=== PATIENT | male | born 1955 | race Caucasian/White ===

== ENCOUNTER 2024-07-31 15:28 | Inpatient (IN) | payer OTHER ==
--- NOTE | 2024-07-31 16:19 | RAD REPORT ---
Procedure: Chest Single View History: Chest pain Comparison: 2007 The lungs appear clear of acute infiltrate. No significant pleural effusion noted. The heart is probably upper limits normal size. IMPRESSION: No acute abnormality is displayed.
[2024-07-31] MEDS ORDERED: MORPHINE 4 MG/ML SYR ONE (16:23)
[2024-07-31 16:30] LABS: Absolute Basophils 0.1 K/uL (0-0.5); Absolute Eosinophils 0.1 K/uL (0-0.5); Absolute Lymphocytes (CBC) 1.8 K/uL (0.7-4.9); Absolute Monocytes 1.8 K/uL (0.1-1.3); Absolute Neutrophil 12.1 K/uL (1.8-8.0); Basophils % 0.9 % (0-1.3); Eosinophils % 0.8 % (0-4.4); Hematocrit 53.1 % (39.6-49.0); Hemoglobin 17.7 g/dL (13.6-17.9); Lymphocytes % 11.4 % (15.3-44.8); MCH 33.5 pg (27.0-35.0); MCHC 33.4 g/dL (32.0-36.0); MCV 100.3 fL (80-100); MPV 8.8 fL (7.6-11.3); Monocytes % 11.4 % (3.3-12.3); Neutrophils % 75.5 % (41.7-73.7); Nucleated Red Blood Cells % 0.1 % (0-0); Platelets 384 thou/uL (152-406); RBC Red Blood Cell Count 5.29 M/uL (4.33-5.43); Red Cell Distribution Width 14.4 % (12.1-15.2)
[2024-07-31 16:52] LABS: Albumin 3.7 g/dL (3.4-5.0); Anion Gap 7.9 mEq/L (5.0-15.0); Bilirubin Direct 0.2 mg/dL (0-0.2); Bilirubin Indirect, Calculated 0.4 mg/dL (0.2-0.8); Bilirubin Total 0.6 mg/dL (0.2-1.0); Globulin 3.8 g/dL (2.3-3.5); Potassium 3.9 mEq/L (3.5-5.1); Protein, Total 7.5 g/dL (6.4-8.2); Troponin High Sensitivity 5.2 pg/mL (<58.9)
[2024-07-31] MEDS ORDERED: METOPROLOL TARTRATE 5 MG/5 ML INJ IV ONE (17:00)
--- NOTE | 2024-07-31 17:02 | EDPHYS ---
Physician Documentation [facility] Name: Navid Dawkins Age: 69 yrs Sex: Male : 1955 Arrival Date: 07/31/2024 Time: 15:28 Bed 5 Private MD: ED Physician James Constantino HPI: 07/31 15:57 This 69 yrs old Male presents to ER via Ambulatory with complaints of Chest Pain, ms3 Shortness Of Breath. 15:57 69-year-old male with past medical history of hypertension, hyperlipidemia [place] [facility] [place] for chest pain that began last night. Patient also endorses headache, shortness of breath, diaphoresis. Patient states his discomfort is an 8/10. Patient denies nausea or vomiting. Historical: - Allergies: 15:54 No Known Allergies; iw - Home Meds: 16:34 losartan oral [Active]; amlodipine oral [Active]; uknown medication for aa5 hypercholesterolemia [Active]; - PMHx: 15:54 Hypertensive disorder; Hypercholesterolemia; iw ROS: 15:57 Constitutional: Negative for fever, and chills. Abdomen/GI: Negative for abdominal ms3 pain, nausea, vomiting, diarrhea, and constipation, MS/Extremity: Negative for injury and deformity, 15:57 Cardiovascular: Positive for chest pain, 15:57 Respiratory: Positive for cough, Exam: 15:57 Constitutional: This is a well developed, well nourished patient who is awake, alert, ms3 and in no acute distress. Neck: Trachea midline, no cervical lymphadenopathy. Supple, full range of motion without nuchal rigidity, or vertebral point tenderness. No Meningismus. Respiratory: Lungs have equal breath sounds bilaterally, clear to auscultation and percussion. No rales, rhonchi or wheezes noted. No increased work of breathing, no retractions or nasal flaring. Abdomen/GI: Soft, non-tender, with normal bowel sounds. No distension or tympany. No guarding or rebound. No evidence of tenderness throughout. Skin: Warm, dry with normal turgor. Normal color with no rashes, no lesions, and no evidence of cellulitis. MS/ Extremity: Pulses equal, no cyanosis. Neurovascular intact. Full, normal range of motion. 16:59 ECG was reviewed by the Attending Physician. ms3 Vital Signs: 15:54 BP 135 / 100; Pulse 94; Resp 19; Pulse Ox 95% on R/A; Pain 8/10; iw 17:00 BP 135 / 88; Pulse 115; Resp 18 S; Pulse Ox 92% on R/A; aa5 17:02 Pulse Ox 96% on 2 lpm NC; aa5 17:05 BP 134 / 89; Pulse 105; Resp 18 S; Pulse Ox 96% on 2 lpm NC; aa5 17:10 BP 123 / 87; Pulse 95; Resp 16 S; Pulse Ox 97% on 2 lpm NC; aa5 17:30 BP 130 / 95; Pulse 88; Resp 16 S; Temp 97.6(TE); Pulse Ox 96% on 2 lpm NC; aa5 17:44 Weight 88 kg; aa5 15:54 Pain Scale: Adult iw MDM: 15:54 Patient medically screened. ms3 15:57 Differential diagnosis: abnormal EKG, acute myocardial infarction, Atrial fibrillation. ms3 17:37 Data reviewed: vital signs, nurses notes, lab test result(s), EKG, radiologic studies, ms3 plain films, and as a result, I will admit patient. Consideration of Admission/Observation Patient was admitted/placed on observation. Management of patient was discussed with the following: Hospitalist: Dr Barboza. I considered the following discharge prescriptions or medication management in the emergency department Medications were administered in the Emergency Department. See MAR. Counseling: I had a detailed discussion with the patient and/or guardian regarding the historical points, exam findings, and any diagnostic results supporting the discharge/admit diagnosis, lab results, radiology results, the need for further work-up and treatment in the hospital. ED course: Discussed necessity for admission with patient. He understands and agrees with plan. All questions were answered. 07/31 15:39 Order name: Basic Metabolic Panel; Complete Time: 16:56 ms3 07/31 15:39 Order name: CBC with Diff; Complete Time: 16:43 ms3 07/31 15:39 Order name: LFT's; Complete Time: 16:56 ms3 07/31 15:39 Order name: Magnesium; Complete Time: 16:56 ms3 07/31 15:39 Order name: Troponin HS; Complete Time: 16:56 ms3 07/31 16:13 Order name: BNP; Complete Time: 16:56 ms3 07/31 15:39 Order name: XRAY Chest (1 view); Complete Time: 16:43 ms3 07/31 15:39 Order name: EKG; Complete Time: 15:39 ms3 07/31 17:12 Order name: CONS Physician Consult EDMS 07/31 15:39 Order name: Cardiac monitoring; Complete Time: 16:00 ms3 07/31 15:39 Order name: EKG - Nurse/Tech; Complete Time: 16:00 ms3 07/31 15:39 Order name: IV Saline Lock; Complete Time: 16:00 ms3 07/31 15:39 Order name: Labs collected and sent; Complete Time: 16:00 ms3 07/31 15:39 Order name: O2 Per Protocol; Complete Time: 16:00 ms3 07/31 15:39 Order name: O2 Sat Monitoring; Complete Time: 16:00 ms3 EC:59 Rate is 108 beats/min. Rhythm is irregularly irregular. QRS [place] is Normal. QRS ms3 interval is normal. Clinical impression: Atrial Fibrillation. Interpreted by me. Reviewed by me. Administered Medications: 16:28 Drug: morphine IVP or IV 4 mg IVP once over 4 mins Route: IVP; Infused Over: 4 mins; aa5 Site: right antecubital; 16:45 Follow up: Response: No adverse reaction; Marked relief of symptoms aa5 17:00 Drug: Metoprolol IVP 5 mg IVP every 5 minutes; Hold for SBP < 100 or HR < 60. x3 Route: aa5 IVP; Site: right antecubital; 17:05 Drug: Metoprolol IVP 5 mg IVP every 5 minutes; Hold for SBP < 100 or HR < 60. x3 Route: aa5 IVP; Site: right antecubital; 17:10 Drug: Metoprolol IVP 5 mg IVP every 5 minutes; Hold for SBP < 100 or HR < 60. x3 Route: aa5 IVP; Site: right antecubital; 17:15 Follow up: Response: No adverse reaction; Marked relief of symptoms aa5 17:40 CANCELLED (Physician Discretion): mg PO once ms3 17:48 Drug: Enoxaparin Sub-Q 1 mg/kg Sub-Q once Route: Sub-Q; Site: right lower abdomen; aa5 18:45 Follow up: Response: No adverse reaction aa5 Disposition: 17:11 Critical Care:. ms3 Disposition Summary: 07/31/24 17:02 Hospitalization Ordered Notes: Hospitalization Status: Inpatient Admission ms3 Provider: Sonny Barboza ms3 Location: Telemetry/MedSurg (Inpatient) ms3 Condition: Stable ms3 Problem: new ms3 Symptoms: have improved ms3 Bed/Room Type: Standard ms3 Room Assignment: 210(07/31/24 17:20) bd Diagnosis - Unspecified atrial fibrillation ms3 - Chest pain, unspecified ms3 Forms: - Medication Reconciliation Form ms3 - SBAR form ms3 - Leadership Thank You Letter ms3 Critical care time excluding procedures: 17:11 Critical care time: Bedside Care: 30 minutes, Consultation: 5 minutes, Family ms3 Intervention: 5 minutes. Total time: 40 minutes Signatures: Dispatcher [employer] EDKiera Acosta Irene RN ROBE iw Janeen Lawson RN RN aa5 James Constantino DO DO ms3 Corrections: (The following items were deleted from the chart) 15:39 15:39 Chest Single View+RAD.RAD.BRZ ordered. EDMS EDMS 17:20 17:02 ms3 bd 17:40 17:39 Aspirin PO 81 mg PO once ordered. ms3 ms3
--- NOTE | 2024-07-31 17:02 | ER ---
Nurse's Notes [facility] Name: Navid Dawkins Age: 69 yrs Sex: Male : 1955 Arrival Date: 07/31/2024 Time: 15:28 Bed 5 Private MD: Diagnosis: Unspecified atrial fibrillation;Chest pain, unspecified Presentation: 07/31 15:53 Chief complaint: Patient states: chest pain, neck pain, chills, SOB since last night. iw Coronavirus screen: Client presents with at least one sign or symptom that may indicate coronavirus-19. Initial Sepsis Screen: Does the patient meet any 2 criteria? No. Patient's initial sepsis screen is negative. Does the patient have a suspected source of infection? No. Patient's initial sepsis screen is negative. Risk Assessment: Do you want to hurt yourself or someone else? Patient reports no desire to harm self or others. 15:53 Method Of Arrival: Ambulatory iw 15:53 Acuity: ANTHONY 3 iw Historical: - Allergies: 15:54 No Known Allergies; iw - Home Meds: 16:34 losartan oral [Active]; amlodipine oral [Active]; uknown medication for aa5 hypercholesterolemia [Active]; - PMHx: 15:54 Hypertensive disorder; Hypercholesterolemia; iw Screenin:00 [facility] ED Fall Risk Assessment (Adult) History of falling in the last 3 months, aa5 including since admission No falls in past 3 months (0 pts) Confusion or Disorientation No (0 pts) Intoxicated or Sedated No (0 pts) Impaired Gait No (0 pts) Mobility Assist Device Used No (0 pt) Altered Elimination No (0 pt) Score/Fall Risk Level 0 - 2 = Low Risk Oriented to surroundings, Maintained a safe environment, Educated pt \T\ family on fall prevention, incl call for assistance when getting out of bed. Abuse screen: Denies threats or abuse. Nutritional screening: No deficits noted. Tuberculosis screening: No symptoms or risk factors identified. Assessment: 16:00 General: Appears uncomfortable, Behavior is calm, cooperative. Pain: Complains of pain aa5 in chest Pain radiates to neck Pain currently is 8 out of 10 on a pain scale. Quality of pain is described as sharp, Pain began 1 day ago. Is intermittent. Neuro: Level of Consciousness is awake, alert, obeys commands, Oriented to person, place, time, situation. Cardiovascular: Heart tones S1 S2 present Rhythm is irregular. Respiratory: Reports shortness of breath at rest Airway is patent Respiratory effort is even, unlabored, Respiratory pattern is regular, symmetrical, Breath sounds are clear bilaterally. GI: No signs and/or symptoms were reported involving the gastrointestinal system. Patient currently denies nausea, vomiting. : No signs and/or symptoms were reported regarding the genitourinary system. EENT: No signs and/or symptoms were reported regarding the EENT system. Derm: Skin is pink, warm \T\ dry. Musculoskeletal: Range of motion: intact in all extremities. 16:28 Reassessment: Patient is alert, oriented x 3, equal unlabored respirations, skin aa5 warm/dry/pink. 16:45 Reassessment: Patient is alert, oriented x 3, equal unlabored respirations, skin aa5 warm/dry/pink. Patient states feeling better. 17:10 Reassessment: Patient is alert, oriented x 3, equal unlabored respirations, skin aa5 warm/dry/pink. Patient states feeling better. Patient states symptoms have improved. 17:51 Reassessment: Patient is alert, oriented x 3, equal unlabored respirations, skin aa5 warm/dry/pink. Report faxed to admitting nurse. Pt notified of wait time to be transported to Room 210. . 18:44 Reassessment: Patient is alert, oriented x 3, equal unlabored respirations, skin aa5 warm/dry/pink. Vital Signs: 15:54 BP 135 / 100; Pulse 94; Resp 19; Pulse Ox 95% on R/A; Pain 8/10; iw 17:00 BP 135 / 88; Pulse 115; Resp 18 S; Pulse Ox 92% on R/A; aa5 17:02 Pulse Ox 96% on 2 lpm NC; aa5 17:05 BP 134 / 89; Pulse 105; Resp 18 S; Pulse Ox 96% on 2 lpm NC; aa5 17:10 BP 123 / 87; Pulse 95; Resp 16 S; Pulse Ox 97% on 2 lpm NC; aa5 17:30 BP 130 / 95; Pulse 88; Resp 16 S; Temp 97.6(TE); Pulse Ox 96% on 2 lpm NC; aa5 17:44 Weight 88 kg; aa5 15:54 Pain Scale: Adult iw ED Course: 15:30 Patient arrived in ED. mg5 15:38 James Constantino DO is Attending Physician. ms3 15:48 Janeen Lawson, RN is Primary Nurse. aa5 15:54 Triage completed. iw 16:00 Initial lab(s) drawn, by me, sent to lab. EKG done, by ED staff, reviewed by James Constantino DO. Inserted saline lock: 20 gauge in right antecubital area, using aseptic technique. Blood collected. Flushed with 10 mL NS. Patient maintains SpO2 saturation greater than 95% on room air. 16:00 Patient has correct armband on for positive identification. Placed in gown. Bed in low aa5 position. Call light in reach. Side rails up X2. Client placed on continuous cardiac and pulse oximetry monitoring. NIBP monitoring applied. nurse monitoring on. Pulse ox on. NIBP on. 16:05 XRAY Chest (1 view) In Process Unspecified. EDMS 17:01 Sonny Barboza MD is Hospitalizing Provider. ms3 17:39 1739 CM met with at the bedside in the ED exam room. Patient identified by ane name and . Demographic sheet confirmed. Patient states he lives alone in a single story home and that prior to admission, he performs ADLs independently. No HH, home oxygen or other medical services at this time. MPOA is in place. plans on returning home and states he has his vehicle at the hospital and can transport himself home. He states that if he needs to, he can call on family to transport him back home. CM team will continue to follow and coordinate care during this hospital stay. 18:45 No provider procedures requiring assistance completed. Patient admitted, IV remains in aa5 place. Administered Medications: 16:28 Drug: morphine IVP or IV 4 mg IVP once over 4 mins Route: IVP; Infused Over: 4 mins; aa5 Site: right antecubital; 16:45 Follow up: Response: No adverse reaction; Marked relief of symptoms aa5 17:00 Drug: Metoprolol IVP 5 mg IVP every 5 minutes; Hold for SBP < 100 or HR < 60. x3 Route: aa5 IVP; Site: right antecubital; 17:05 Drug: Metoprolol IVP 5 mg IVP every 5 minutes; Hold for SBP < 100 or HR < 60. x3 Route: aa5 IVP; Site: right antecubital; 17:10 Drug: Metoprolol IVP 5 mg IVP every 5 minutes; Hold for SBP < 100 or HR < 60. x3 Route: aa5 IVP; Site: right antecubital; 17:15 Follow up: Response: No adverse reaction; Marked relief of symptoms aa5 17:40 CANCELLED (Physician Discretion): [id number] mg PO once ms3 17:48 Drug: Enoxaparin Sub-Q 1 mg/kg Sub-Q once Route: Sub-Q; Site: right lower abdomen; aa5 18:45 Follow up: Response: No adverse reaction aa5 Medication: 18:45 VIS not applicable for this client. aa5 Outcome: 17:02 Decision to Hospitalize by Provider. ms3 18:44 Admitted to Tele accompanied by tech, via wheelchair, with oxygen, with chart, aa5 18:44 Condition: stable 18:44 Instructed on the need for admit, Demonstrated understanding of instructions, 18:45 Patient left the ED. db Signatures: Dispatcher [employer] EDMS Andie Rivero RN RN iw Janeen Lawson RN RN aa5 John Begum RN James Cox DO DO ms3 Elida Sibley, RN RN db Damaris Moreno mg5 Shey Olivas RN RN ane Corrections: (The following items were deleted from the chart) 16:57 16:00 Pain: Complains of pain in chest Pain radiates to neck Pain currently is 8 out of aa5 10 on a pain scale. Quality of pain is described as sharp, Pain began Is intermittent, aa5 18:55 18:55 Patient left the ED. db db
[2024-07-31] MEDS ORDERED: ONDANSETRON 4 MG/2 ML VIAL IV PRN (17:07)
[2024-07-31] MEDS ORDERED: ENOXAPARIN 100 MG/ML SYR SQ ONE (17:45)
[2024-07-31 22:03] VITALS: BMI 27.8
[2024-07-31] MEDS: ACETAMINOPHEN 500 MG TAB PO PRN (22:29)
[2024-08-01 04:44] LABS: Absolute Basophils 0.1 K/uL (0-0.5); Absolute Eosinophils 0.1 K/uL (0-0.5); Absolute Lymphocytes (CBC) 2.3 K/uL (0.7-4.9); Absolute Monocytes 1.3 K/uL (0.1-1.3); Basophils % 0.9 % (0-1.3); Eosinophils % 0.9 % (0-4.4); Hematocrit 49.8 % (39.6-49.0); Hemoglobin 16.8 g/dL (13.6-17.9); Lymphocytes % 21.3 % (15.3-44.8); MCHC 33.7 g/dL (32.0-36.0); MCV 100.8 fL (80-100); MPV 8.5 fL (7.6-11.3); Monocytes % 11.7 % (3.3-12.3); Neutrophils % 65.2 % (41.7-73.7); Nucleated Red Blood Cells % 0.1 % (0-0); Platelets 305 thou/uL (152-406); RBC Red Blood Cell Count 4.94 M/uL (4.33-5.43); Red Cell Distribution Width 14.2 % (12.1-15.2)
[2024-08-01 05:09] LABS: Anion Gap 3.2 mEq/L (5.0-15.0); Potassium 4.2 mEq/L (3.5-5.1); Thyroid Stimulating Hormone 0.868 uIU/mL (0.358-3.740); Troponin High Sensitivity 6.5 pg/mL (<58.9)
--- NOTE | 2024-08-01 07:03 | HP ---
Date of Admission: 07/31/2024 Chief Complaint: Chest pain and neck pain. History Of Present Illness: This is a 69-year-old male patient who came into office today with complaints of neck pain and chest pain. The patient says that he woke up this morning with pain in back of his neck and on each side of his neck between neck and shoulder region. There was no fall or injury. He also started to have some chest tightness, and with all these complaints, he came into office. Denies any fever, chills, cough, congestion. No expectoration or hemoptysis. No nausea, no vomiting. After he was evaluated at office, he was sent to emergency room and details were discussed with emergency room physician as soon as I evaluated him at office requesting further evaluation in the emergency room and the patient was asked to go to the emergency room right away. Denies any vomiting or diarrhea. Allergies: NO KNOWN ALLERGIES. Medications: Amlodipine 10 mg daily, aspirin 81 mg daily, atorvastatin 20 mg daily at bedtime, and losartan 100 mg daily. Review of Systems: Cardiovascular: As mentioned above. Musculoskeletal: As mentioned above. All other systems reviewed are negative. Past Medical History: Significant for impaired fasting glucose, hypertension, mixed hyperlipidemia, gastroesophageal reflux disease, abnormal liver function tests due to alcohol consumption, diverticulosis, benign prostatic hypertrophy and gout. Past Surgical History: Hernia repair with lysis of intra-abdominal operations and ileocecectomy, back surgery, shoulder surgery. Family History: Father had liver cancer. Mother had osteoporosis. Social History: Significant for smoking on a daily basis and daily use of alcohol, approximately 6 drinks a day, which is hard liquor on a daily basis. Physical Examination: Vital Signs: At office, blood pressure was 106/67; pulse was 118, irregularly irregular; temperature 97.8; respiratory rate 18. Weight 194 pounds, height 70 inches. General: Awake, alert, oriented, not in distress. HEENT: Head atraumatic, normocephalic. Conjunctivae nonerythematous. Sclerae white. Mouth, no thrush or edema noted. Ears/Nose, no mass, lesion, discharge noted. Neck: Supple. No JVD, lymph nodes, bruit, thyromegaly noted. Lungs: Bilateral good equal air entry. Clear to auscultation. No rhonchi. No rales. Heart: Sounds normal, but heart rhythm is irregularly irregular. Abdomen: Soft, bowel sounds normal. No guarding, rigidity, tenderness, mass, hepatosplenomegaly, distention, or bruit noted. Extremities: No leg edema. No calf tenderness. Skin: No rash, ulcer, cellulitis. Lymphatics: No lymph node enlargement in neck, supraclavicular, infraclavicular region. Neuro: No focal neurological deficit. Chest: Unremarkable. External Genitalia: Deferred. Rectal: Deferred. Laboratory Data: EKG shows atrial fibrillation. Chest x-ray: No acute cardiopulmonary changes. White count 16, hemoglobin 17.7, platelets 384. Sodium 135, potassium 3.9, chloride 108, bicarb 23, BUN 21, creatinine 1.21, glucose 139. Liver function tests normal. ProBNP 1168. Troponin 5.2. Impression: 1. Atrial fibrillation with rapid ventricular rate, new onset. 2. Chest pain. 3. Neck pain. 4. Hypertension. 5. Mixed hyperlipidemia. 6. Impaired fasting glucose. 7. Benign prostatic hypertrophy. 8. Diverticulosis. 9. Abnormal liver function tests due to alcohol consumption. Plan: We will go ahead and admit the patient to hospital for further evaluation and management of this problem. The patient is appropriate for inpatient and is expected to spend 2 midnights in hospital. After patient was evaluated in the emergency room, ER physician called and discussed details with me. Metoprolol and Lovenox were given and patient was admitted to the hospital. We will consult outboard technician for this new-onset atrial fibrillation. Starting tomorrow, we will continue metoprolol 25 mg 2 times a day, and if necessary, adjust dose according to the heart rate as well as blood pressure. We will also start the patient on Eliquis 5 mg 2 times a day. Echo with Doppler will be done tomorrow. We will get blood test tomorrow morning including lipid profile and TSH and magnesium level. For hypertension, we will continue to monitor his blood pressure, make adjustment on medication as it becomes necessary. For hyperlipidemia, we will continue his statin therapy per order. The patient has a longstanding history of alcohol use almost on a daily basis and drinks up to 6 drinks a day of hard liquor almost on a daily basis and this is definitely a significant risk factor for atrial fibrillation. In the past, I have advised him to lower consumption of alcohol and to quit completely because of his abnormal liver function tests that we have noted on outpatient basis, but so far, the patient has not, and once again, we will advise the patient to quit using alcohol completely. Total time 90 minutes that includes evaluation at office, communication with the emergency room physician on 2 different occasions, and performing evaluation and management for this hospital admission. JOHNNIE/NADEEM Voice ID: [id number] TATI
[2024-08-01] MEDS: SOTALOL HCL 80 MG TAB PO SCH ×2 (07:39→20:46)
[2024-08-01 07:53] VITALS: O2SAT 97
[2024-08-01] MEDS ORDERED: METOPROLOL XL 25 MG TAB PO SCH (09:00)
[2024-08-01] MEDS ORDERED: METOPROLOL XL 50 MG TAB PO SCH (09:00)
[2024-08-01] MEDS: APIXABAN 5 MG TABLET PO SCH (09:18)
--- NOTE | 2024-08-01 10:59 | ECHO ---
HEIGHT: 5 ft 10 in WEIGHT: 194 lb 0 oz DATE OF STUDY: 08/01/[address]: Juan Barboza MD 2-DIMENSIONAL: YES M.MODE: YES DOPPLER: YES COLOR FLOW: YES TDS: PORTABLE: YES DEFINITY: BUBBLE STUDY: DIAGNOSIS: ATRIAL FIBRILLATION CARDIAC HISTORY: CATHERIZATION: NO SURGERY: NO PROSTHETIC VALVE: NO PACEMAKER: NO MEASUREMENTS (cm) DIASTOLIC (NORMALS) SYSTOLIC (NORMALS) IVSd 1.0 (0.6-1.2) LA Diam 3.8 (1.9-4.0) LVEF 55-60% LVIDd 4.1 (3.5-5.7) LVIDs 3.1 (2.0-3.5) %FS 23% LVPWd 1.1 (0.6-1.2) Ao Diam 3.1 (2.0-3.7) 2 DIMENSIONAL ASSESSMENT: RIGHT ATRIUM: NORMAL LEFT ATRIUM: MILD DILATED RIGHT VENTRICLE: NORMAL LEFT VENTRICLE: NORMAL TRICUSPID VALVE: TRACE TIRCUSPID REGURGITATION MITRAL VALVE: NORMAL PULMONIC VALVE: NORMAL AORTIC VALVE: NORMAL PERICARDIAL EFFUSION: NONE AORTIC ROOT: NORMAL LEFT VENTRICULAR WALL MOTION: NORMAL DOPPLER/COLOR FLOW: NORMAL COMMENTS: 1. NORMAL LEFT VENTRICULAR SYSTOLIC FUNCTION, EJECTION FRACTION 55-60%, NORMAL WALL MOTION 2. NORMAL DIASTOLIC FUCNTION 3. MILD DILATED LEFT ATRIUM TECHNOLOGIST: GINNA DUTTON
--- NOTE | 2024-08-01 11:55 | P.CNS ---
Date of Consult: 08/01/24 Chief Complaint: AF History of Present Illness: Patient with PMH of HTN, HLD, ETOH use, sleep apnea, presented with not feeling well for 2 days, report neck pain and headache, found to be in AF w RVR with elevated BP, denies chest pressure, no SOB, no SILVERIO, report feeling some palpita tions but no syncope. Allergies No Known Allergies Allergy (Unverified 02/18/12 02:11) Home medications list reviewed: Yes Home Medications: Amlodipine [Norvasc] 10 mg PO DAILY 07/31/24 Atorvastatin Calcium 20 mg PO 07/31/24 - Past Medical/Surgical History Diabetic: No -: HTN -: High cholesterol -: Back surgery (15 yrs ago) - Social History Alcohol use: Yes Place of Residence: Home Review of Systems 10-point ROS is otherwise unremarkable Physical Examination Temp Pulse Resp BP Pulse Ox 97.0 F 85 16 102/75 97 08/01/24 08:00 08/01/24 08:00 08/01/24 08:00 08/01/24 08:00 08/01/24 08:00 General: Alert, In no apparent distress HEENT: Atraumatic, PERRLA, Mucous membr. moist/pink, EOMI, Sclerae nonicteric Neck: Supple, 2+ carotid pulse no bruit, No LAD, Without JVD or thyroid abno rmality Respiratory: Clear to auscultation bilaterally, Normal air movement Cardiovascular: Irregular heart rate/rhythm Gastrointestinal: Normal bowel sounds, No tenderness Musculoskeletal: No tenderness Integumentary: No rashes Neurological: Normal gait, Normal speech, Normal tone, Normal affect Lymphatics: No axilla or inguinal lymphadenopathy Laboratory Data (last 24 hrs) 07/31/24 07/31/24 16:12 16:12 WBC 16.00 H Hgb 17.7 Hct 53.1 H Plt Count 384 Sodium 135 L Potassium 3.9 BUN 21 H Creatinine 1.21 Glucose 139 H Magnesium 2.0 Total Bilirubin 0.6 AST 16 ALT 26 Alkaline Phosphatase 72 - Problems (1) Atrial fibrillation Current Visit: Yes Status: Acute Plan: new onset, patient is currently rate controlled Continue Sotalol 80 mg po BID (EKG after 3rd dose) Continue Eliquis 5 mg po BID NPO after midnight for possible KOREY DCCV if still in AF (2) HTN (hypertension) Current Visit: Yes Status: Acute Plan: continue Amlodipine. (3) HLD (hyperlipidemia) Current Visit: Yes Status: Acute Plan: continue statins
--- NOTE | 2024-08-01 19:45 | PN ---
Date of Progress Note: 08/01/2024 Subjective: The patient was seen this morning for followup. No new complaints or problems reported. Denies any more neck pain or chest pain and overnight his condition has remained stable. Objective: Vital Signs: Reviewed. HEENT: Unremarkable. Lungs: Clear to auscultation. Heart: Sounds normal. Abdomen: Soft. Bowel sounds normal. No guarding, rigidity, tenderness, distention. Extremities: No leg edema. Laboratory Data: WBC this morning 10.7, hemoglobin 16.8, platelets 305. Sodium 136, potassium 4.2, chloride 108, bicarb 29, BUN 15, creatinine 1.16, glucose 102. Troponin 6.5. TSH 0.868. Impression: 1.Atrial fibrillation with rapid ventricular rate. 2.Hypertension. 3.Hyperlipidemia. 4.Alcohol dependence. Plan: The patient continues to remain in atrial fibrillation with rapid ventricular rate. His heart rate was well controlled this morning when I saw him between 80 to 90, still in atrial fibrillation, but after I saw him, dye lab technician informed me that heart rate had gone up to 140 range. We discontinued metoprolol after that and started him on sotalol 80 mg twice a day. We will continue El iquis 5 mg 2 times a day. Continue his statin therapy per order. Echo will be done today. We will follow up on result and we will follow up with necktie operator pockets and pieces. The patient was advised in detail this morning that he must stop using alcohol completely as it could be underlying cause of his atrial fibr illation or at least it will be difficult to control this problem if he continues to drink alcohol regardless of the underlying cause. JOHNNIE/MODL Voice ID: [id number] Report ID: [id number]
[2024-08-01] MEDS: ATORVASTATIN 20 MG TAB PO SCH (20:46)
[2024-08-02] MEDS: D5 0.9 NS 1,000 ML IV SCH (08:00)
[2024-08-02] MEDS: NA CHLORIDE 0.9% 500 ML ONE (08:17)
[2024-08-02] MEDS ORDERED: propofoL 200 MG/20 ML VIAL IV ONE (08:56)
[2024-08-02] MEDS ORDERED: LIDOCAINE 1% MPF 5 ML VIAL ONE (08:57)
--- NOTE | 2024-08-02 12:14 | P.PN ---
Subjective Date of Service: 08/02/24 Chief Complaint: AF Subjective: No new changes, No C/O voiced, Tolerating diet, Ambulating, Improving Review of Systems 10-point ROS is otherwise unremarkable Physical Examination - Vital Signs Temperature: 98.8 F Blood Pressure: 116/67 Pulse: 81 Respirations: 14 Pulse Ox (%): 95 - Physical Exam General: Alert, In no apparent distress HEENT: Atraumatic, PERRLA, EOMI Neck: Supple, JVD not distended Respiratory: Clear to auscultation bilaterally, Normal air movement Cardiovascular: Regular rate/rhythm, Normal S1 S2 Gastrointestinal: Normal bowel sounds, No tenderness Musculoskeletal: No tenderness Integumentary: No rashes Neurological: Normal speech, Normal tone, Normal affect Lymphatics: No axilla or inguinal lymphadenopathy - Studies Medications List Reviewed: Yes Assessment And Plan - Current Problems (Diagnosis) (1) Atrial fibrillation Current Visit: Yes Status: Acute Plan: new onset, patient is currently rate controlled Continue Sotalol 80 mg po BID (EKG after 3rd dose) Continue Eliquis 5 mg po BID KOREY DCCV done in am (2) HTN (hypertension) Current Visit: Yes Status: Acute Plan: continue Amlodipine. (3) HLD (hyperlipidemia) Current Visit: Yes Status: Acute Plan: continue statins
--- NOTE | 2024-08-02 12:54 | EKG ---
Test Date: 2024-08-02 Test Time: 09:48:37 Interactive Media Director: FREDI MEASUREMENT RESULTS: Intervals: Rate: 59 ID: [id number] QRSD: 98 QT: 446 QTc: 441 [place]: P: 22 ID: [id number] QRS: 48 T: 54 INTERPRETIVE STATEMENTS: Sinus bradycardia Anterior infarct, age undetermined Abnormal ECG Compared to ECG 07/31/2024 15:56:21 Myocardial infarct finding now present Atrial fibrillation no longer present Electronically Signed On 08-02-24 12:53:48 CDT by Mack Robb
--- NOTE | 2024-08-02 13:03 | EKG ---
Test Date: 2024-07-31 Test Time: 15:56:21 Payroll Human Resources Assistant: BP MEASUREMENT RESULTS: Intervals: Rate: 108 CO: QRSD: 84 QT: 330 QTc: 442 [place]: P: CO: QRS: 29 T: 33 INTERPRETIVE STATEMENTS: Atrial fibrillation Abnormal ECG Compared to ECG 07/15/2006 16:22:57 Sinus bradycardia no longer present Electronically Signed On 08-02-24 12:56:28 CDT by Mack Robb
--- NOTE | 2024-08-02 13:25 | TEE ---
TRANSESOPHAGEAL ECHOCARDIOGRAM REPORT CARDIOLOGY DEPARTMENT DATE OF STUDY: 08/02/2024 HEIGHT: 5'10" WEIGHT: 194 lbs DIAGNOSIS: ATRIAL FIBRILLATION OBGYN NURSE COMMENTS: KOREY CARDIAC HISTORY: CATHERIZATION: SURGERY: PROSTHETIC VALVE: PACEMAKER: 2 DIMENSIONAL ASSESSMENT: RIGHT ATRIUM: LEFT ATRIUM: RIGHT VENTRICLE: LEFT VENTRICLE: TRICUSPID VALVE: MITRAL VALVE: PULMONIC VALVE: AORTIC VALVE: PERICARDIAL EFFUSION: AORTIC ROOT: EJECTION FRACTION: LEFT VENTRICULAR WALL MOTION: DOPPLER/COLOR FLOW: COMMENTS: 1. NORMAL LEFT ATRIAL APPENDAGE, NO CLOT. STATUS POT SUCCESSFUL TRANSESOPHAGEAL ECHOCARDIOGRAM GUIDED DIRECT CURRENT CARDIOVERSION. TECHNOLOGIST: GINNA DUTTON
[2024-08-02 16:53] VITALS: BP 115/64; TEMP 97.2
--- NOTE | 2024-08-02 18:56 | DS ---
Date of Discharge: 08/02/2024 Disposition: Discharged to go home. Physical Examination: HEENT: Unremarkable. Lungs: Clear to auscultation. Heart: Sounds normal. Abdomen: Soft. Bowel sounds normal. No guarding, rigidity, tenderness, distention. Extremities: No leg edema. Discharge Medications And Instructions: 1. Stop aspirin, amlodipine, losartan. 2. Continue atorvastatin 20 mg daily. 3. Start Eliquis 5 mg p.o. 2 times a day and sotalol 80 mg p.o. 2 times a day and the patient to take both of these medications about 12 hours apart. 4. Follow up at my office next week. 5. Follow up with Dr. Robb in 2 weeks. 6. Do not take aspirin, Aleve, or Motrin type of medications. 7. May use Tylenol. Laboratory Data: Upon admission, white count 16, hemoglobin 17.7, platelets 384. Yesterday, white count 10.7, hemoglobin 16.8, platelets 305. Echocardiogram from 08/01/2024 shows ejection fraction 55% to 60%, mildly dilated left atrium. Hospital Course: This is a 69-year-old pleasant male patient, who was admitted to the hospital with chest pain and neck pain. Please see dictated H and P for more information. The patient's neck pain has subsided completely after he was admitted to the hospital and has not had any recurrence of chest pain either. His WV was ruled out by getting serial cardiac enzymes. The patient was noted to have atrial fibrillation with rapid ventricular rate and initially he was given metoprolol and that really did not help to control his rate and he continued to remain in atrial fibrillation with rapid ventricular rate, so as of yesterday morning, we started him on sotalol 80 mg 2 times a day. So, so far he has received 3 doses of sotalol in the hospital. He has tolerated that medication very well. Today, he continued to remain in atrial fibrillation, so dive master Dr. Robb took him to cardiac supervisor laboratory animal facility and performed cardioversion which was successful and the patient was brought back to floor in sinus rhythm and remained in sinus rhythm. His QT interval on initial EKG was 330. This morning after third dose of sotalol, it was 452 and last EKG prior to discharge had short QT interval of 422. I did talk to the patient in great detail and explained him about importance of quitting alcohol completely and I have also explained him regarding possible side effects related to Eliquis and he was advised to take appropriate precautions to avoid any fall, head injury, or any cut on the skin and if he has any bleeding for example nosebleed, coughing up blood, blood in urine, blood in stool, or any head injury, he should report to emergency room right away for further evaluation. He was also instructed not to take any aspirin, Aleve, or Motrin type of medication. The patient was discharged to go home in stable condition with above-mentioned medications and instructions. Final Diagnoses: 1. Atrial fibrillation with rapid ventricular rate, paroxysmal, converted to sinus rhythm with cardioversion today. 2. Chest pain. 3. Neck pain. 4. Hypertension. 5. Mixed hyperlipidemia. 6. Impaired fasting glucose. 7. Benign prostatic hypertrophy. 8. Diverticulosis. 9. Abnormal liver function test due to alcohol consumption. Total time spent 40 minutes. JOHNNIE/NADEEM Voice ID: [id number] Report ID: [id number] TATI
--- NOTE | 2024-08-02 22:35 | OP ---
Date of Procedure: 08/02/2024 Surgeon: Mack Robb Procedures Performed: Transesophageal echocardiogram, cardioversion. Indication: Atrial fibrillations. Complications: None. Estimated Blood Loss: None. Sedation: Done by Anesthesia team. Description Of Procedure: After risks, benefits, and alternatives were explained to patient, patient agreed to proceed with procedure. The patient was brought back to the OR. Time-out was performed. Sedation was administered by Anesthesia team. TTE probe was inserted. Images were obtained. TTE p robe was out. Next, synchronized cardioversion was done with 200 joules. The patient was converted back into sinus rhythm. The patient was awakened and moved back to recovery in stable condition. Assessment And Plan: 1.Atrial fibrillation, status post successful synchronized KOREY cardioversion. 2.Continue sotalol and Eliquis. Return to clinic in 4 weeks. DAXA Voice ID: [id number] Report ID: [id number]
--- NOTE | 2024-08-04 16:41 | EKG ---
Test Date: 2024-08-02 Test Time: 12:43:28 Production Line Assembler: CHI MEASUREMENT RESULTS: Intervals: Rate: 67 NH: 188 QRSD: 92 QT: 452 QTc: 477 [place]: P: 36 NH: 188 QRS: 62 T: 67 INTERPRETIVE STATEMENTS: Sinus rhythm with marked sinus arrhythmia T wave abnormality, consider anterior ischemia Prolonged QT Abnormal ECG Compared to ECG 08/02/2024 09:48:37 T-wave abnormality now present Possible ischemia now present Prolonged QT interval now present Sinus bradycardia no longer present Myocardial infarct finding no longer present Electronically Signed On 08-04-24 16:34:25 CDT by Hubert Hickman
--- NOTE | 2024-08-04 16:41 | EKG ---
Test Date: 2024-08-02 Test Time: 15:39:42 Application Software Developer: HUGO MEASUREMENT RESULTS: Intervals: Rate: 61 MS: 200 QRSD: 90 QT: 422 QTc: 424 [place]: P: 24 MS: 200 QRS: 62 T: 66 INTERPRETIVE STATEMENTS: Sinus rhythm with premature atrial complexes Cannot rule out Anterior infarct, age undetermined Abnormal ECG Compared to ECG 08/02/2024 12:43:28 Atrial premature complex(es) now present Myocardial infarct finding now present Sinus arrhythmia no longer present T-wave abnormality no longer present Possible ischemia no longer present Prolonged QT interval no longer present Electronically Signed On 08-04-24 16:34:14 CDT by Hubert Hickman
== END 2024-08-02 16:29 | disposition home or self-care (01) | DRG 310 ==
LOC: ER 15:28 → 2ND 18:28
PROVIDERS: ADMIT Internal Medicine; ATTEND Internal Medicine
PROC: 5A2204Z Restoration of Cardiac Rhythm, Single (ICD-10-PCS; principal; 2024-08-02)
PROC: B24BZZ4 Ultrasonography of Heart with Aorta, Transesophageal (ICD-10-PCS; 2024-08-02)
DX: I48.0 Paroxysmal atrial fibrillation (principal); I10 Essential (primary) hypertension; E78.2 Mixed hyperlipidemia; F10.20 Alcohol dependence, uncomplicated; K21.9 Gastro-esophageal reflux disease without esophagitis; K57.90 Diverticulosis of intestine, part unspecified, without perforation or abscess without bleeding; R73.01 Impaired fasting glucose; R94.5 Abnormal results of liver function studies; Z79.82 Long term (current) use of aspirin; Z79.899 Other long term (current) drug therapy
CPT/HCPCS: 01922; 36415; 71045; 80048; 80061; 80076; 82947; 83735; 83880; 84443; 84484; 85025; 92960; 93005; 93306; 93312; 96372; 96374; 96375; 99285; J1650; J2001; J2704; J7040; J7042